=== PATIENT | female | born 1955 | race Caucasian/White ===

== ENCOUNTER 2022-07-09 13:31 | Outpatient (CLI) | payer MEDICARE | END 2022-07-09 13:32 | disposition home or self-care (01) | LOC: BICMAMMO 13:31 | PROVIDERS: ATTEND Nurse Practitioner Family | DX: Z12.31 Encounter for screening mammogram for malignant neoplasm of breast (principal) | CPT/HCPCS: 77063; 77067 ==

== ENCOUNTER 2024-10-13 10:40 | Outpatient (CLI) | payer MEDICARE | END 2024-10-13 10:41 | disposition home or self-care (01) | LOC: BICMAMMO 10:40 | PROVIDERS: ATTEND Nurse Practitioner Family | DX: Z12.31 Encounter for screening mammogram for malignant neoplasm of breast (principal); Z78.0 Asymptomatic menopausal state; M81.0 Age-related osteoporosis without current pathological fracture; M85.851 Other specified disorders of bone density and structure, right thigh; M85.852 Other specified disorders of bone density and structure, left thigh | CPT/HCPCS: 77063; 77067; 77080 ==